=== PATIENT | female | born 1955 | race Caucasian/White ===

== ENCOUNTER → 2017-08-07 | Outpatient (CLI) | payer MEDICARE, MEDICAID ==
--- NOTE | 2017-08-08 08:15 | XCELERA REPORT ---
[address] [address] Lower Extremity Arterial Evaluation Name: MELI HILL Age: 61 yrs Gender: Female : 1955 Patient Status: Outpatient Patient Location: Study Date: 08/07/2017 01:36 PM Procedure: A color flow and duplex scan of the lower extremity arteries was performed bilaterally with velocity and waveform anaylsis. Reason For Study: ULCER Ordering Physician: SANKET ORTIZ Performed By: John Garcia Measurements and Calculations Right Left SALES AND BUSINESS DEVELOPMENT MANAGER PSV 146.7 130.7 cm/sec Prox PFA PSV -82.0 51.3 cm/sec Prox SFA PSV 108.2 103.6 cm/sec Mid SFA PSV -107.0 -154.0 cm/sec Dist SFA PSV -92.1 -121.0 cm/sec Prox Pop A PSV 91.5 94.3 cm/sec Dist ROSI PSV 14.5 89.9 cm/sec Dist INSURANCE ASSISTANT PSV 120.7 146.9 cm/sec Pedro Luis Pedis PSV -108.6 -179.7 cm/sec Right Side Arterial Evaluation Normal velocity and triphasic waveforms noted from the Common Femoral artery to the Posterior Tibial . Biphasic in the Anterior Tibial 20-49 % stenosis at the Anterior Tibial artery. Ankle Brachial index was not done due to patient request. Left Side Arterial Evaluation Normal velocity and triphasic waveforms noted from the Common Femoral artery to the Anterior Tibial. Biphasic in the Posterior tibial. 20-49 % stenosis at the Posterior tibial. artery. Ankle Brachial index was not done due to patient request. Interpretation Summary Mild hemodynamically significant lesions in the bilateral lower extremities, on duplex imaging, at rest. : SANKET ORTIZ > Fredrick Mcgovern
--- NOTE | 2017-08-08 08:19 | XCELERA REPORT ---
[address] [address] Lower Extremity Venous Evaluation Name: MELI HILL Age: 61 yrs Gender: Female : 1955 Patient Status: Outpatient Patient Location: Study Date: 08/07/2017 02:04 PM Procedure: A bilateral duplex scan of the lower extremity veins was performed. The evaluation included responses to compression and other maneuvers with patient in the supine and standing positions to assess venous insufficiency. Reason For Study: ULCER Ordering Physician: SANKET ORTIZ Performed By: John Garcia Right Sided Venous Evaluation Deep venous system evaluatiion shows patent veins with no obstruction or significant reflux identified. Sapheno Femoral junction: no reflux. Femoral vein reflux: no reflux. Greater Saphenous vein, Proximal thigh: reflux: no reflux. Greater Saphenous vein, Distal thigh: reflux: no reflux. Greater Saphenous vein, Proximal below knee: reflux: no reflux. No significant Perforators identified. Left Sided Venous Evaluation Deep venous system evaluatiion shows patent veins with no obstruction or significant reflux identified. Sapheno Femoral junction: no reflux. Femoral vein reflux: no reflux. Greater Saphenous vein, Proximal thigh: reflux: no reflux. Greater Saphenous vein, Distal thigh: reflux: no reflux. Greater Saphenous vein, Proximal below knee: reflux: no reflux. No significant Perforators identified. Interpretation Summary No duplex evidence of DVT or obstruction in the bilateral lower extremities. No significant superficial or deep reflux. : SANKET ORTIZ > Fredrick Mcgovern
== END ==
LOC: SP 12:19
PROVIDERS: ATTEND Nurse Practitioner
DX: L97.222 Non-pressure chronic ulcer of left calf with fat layer exposed (principal)
CPT/HCPCS: 93925; 93970

== ENCOUNTER 2018-03-23 10:53 | Inpatient (IN) | payer MEDICARE, MEDICAID ==
--- NOTE | 2018-03-23 11:20 | ER Document Report ---
ED Medical Screen (RME) - General Chief Complaint: Chest Congestion Stated Complaint: SHORTNESS OF BREATH Time Seen by Provider: 03/23/18 11:17 Mode of Arrival: Medic Information source: Patient Notes: This is a 62-year-old female who presents to the emergency room with low-grade fever, sore throat, coughing, wheezing. Patient states that sore throat started 3 days ago and she started coughing 2 days ago. She was seen in urgent care and sent over from urgent care by EMS. She is so far received 3 nebulizer treatments (she does states she is gotten benefit from these), IV Solu-Medrol. She has a history of lymphedema and psoriasis. Her only medicines his Lasix. She lives with her brother who has not been sick. TRAVEL OUTSIDE OF THE [place] IN LAST 30 DAYS: No - Related Data Allergies/Adverse Reactions: No Known Allergies Allergy (Verified 03/23/18 10:54) Past Medical History - Past Medical History Cardiac Medical History: Reports: Hx Hypertension, Hx Peripheral Vascular Disease Pulmonary Medical History: Reports: Hx Bronchitis, Hx Pneumonia Denies: Hx Tuberculosis Renal/ Medical History: Denies: Hx Peritoneal Dialysis Malignancy Medical History: Denies: Hx Cervical Cancer - polyp removed 2012 Skin Medical History: Reports Hx Cellulitis Infectious Medical History: Denies: Hx MRSA Past Surgical History: Reports: Hx Cholecystectomy, Hx Orthopedic Surgery - back surgery. Denies: Hx Pacemaker - Immunizations Hx Diphtheria, Pertussis, Tetanus Vaccination: No Physical Exam - Vital signs Vitals: Temp Pulse Resp BP Pulse Ox 98.5 F 89 34 H 150/87 H 91 L 03/23/18 11:03/23/18 11:03/23/18 11:03/23/18 11:00 03/23/18 11:00 Course - Vital Signs Vital signs: Temp Pulse Resp BP Pulse Ox 98.5 F 89 34 H 150/87 H 91 L 03/23/18 11:03/23/18 11:03/23/18 11:00 03/23/18 11:00 03/23/18 11:00 Doctor's Discharge - Discharge Referrals: SANKET ORTIZ NP [Primary Care Provider] - Follow up as needed
--- NOTE | 2018-03-23 11:40 | RADIOLOGY REPORT (SQ) ---
EXAM DESCRIPTION: CHEST SINGLE VIEW COMPLETED DATE/TIME: 03/23/2018 11:31 am REASON FOR STUDY: sob COMPARISON: 12/28/2011 EXAM PARAMETERS: NUMBER OF VIEWS: One view. TECHNIQUE: Single frontal radiographic view of the chest acquired. RADIATION DOSE: NA LIMITATIONS: None. FINDINGS: LUNGS AND PLEURA: No opacities, masses or pneumothorax. No pleural effusion. MEDIASTINUM AND HILAR STRUCTURES: No masses. Contour normal. HEART AND VASCULAR STRUCTURES: Heart normal in size. Normal vasculature. BONES: No acute findings. HARDWARE: None in the chest. OTHER: No other significant finding. IMPRESSION: NO ACUTE RADIOGRAPHIC FINDING IN THE CHEST. TECHNICAL DOCUMENTATION: JOB ID: [id number] [employer]- All Rights Reserved Reading location - IP/workstation name: [email or web address]
[2018-03-23 12:22] LABS: HEMATOCRIT 43.8 % (36.0-47.0); HEMOGLOBIN 14.4 g/dL (12.0-15.5); MEAN CORPUSCULAR HEMOGLOBIN 27.4 pg (27.0-33.4); MEAN CORPUSCULAR HGB CONC 32.8 g/dL (32.0-36.0); MEAN CORPUSCULAR VOLUME 83 fl (80-97); PLATELET COUNT 212 10^3/uL (150-450); RED BLOOD COUNT 5.25 10^6/uL (3.72-5.28); RED CELL DISTRIBUTION WIDTH 15.4 % (11.5-14.0); WHITE BLOOD COUNT 8.1 10^3/uL (4.0-10.5)
[2018-03-23 12:32] LABS: A TYPE INFLUENZA AG NEGATIVE (NEGATIVE); ALANINE AMINOTRANSFERASE 38 U/L (9-52); ALBUMIN 4.8 g/dL (3.5-5.0); ALKALINE PHOSPHATASE 109 U/L (38-126); ANION GAP 13 (5-19); ASPARTATE AMINO TRANSFERASE 34 U/L (14-36); B INFLUENZA AG NEGATIVE (NEGATIVE); BILIRUBIN,DIRECT 0.2 mg/dL (0.0-0.4); BILIRUBIN,TOTAL 0.8 mg/dL (0.2-1.3); BLOOD UREA NITROGEN 13 mg/dL (7-20); CALCIUM 9.5 mg/dL (8.4-10.2); CARBON DIOXIDE 24 mmol/L (22-30); CHLORIDE 105 mmol/L (98-107); GLUCOSE 148 mg/dL (75-110); POTASSIUM 3.9 mmol/L (3.6-5.0); SODIUM 142.2 mmol/L (137-145)
[2018-03-23 12:43] LABS: NT PRO BNP 92 pg/mL (5-900)
[2018-03-23 12:47] LABS: TROPONIN I < 0.012 ng/mL
[2018-03-23 12:52] LABS: ABSOLUTE LYMPHOCYTES# (MANUAL) 1.2 10^3/uL (0.5-4.7); ABSOLUTE MONOCYTES # (MANUAL) 0.2 10^3/uL (0.1-1.4); ABSOLUTE NEUTROPHILS# (MANUAL) 6.4 10^3/uL (1.7-8.2); BASOPHILS % (MANUAL) 1 % (0-2); EOSINOPHILS % (MANUAL) 2 % (0-6); HYPOCHROMASIA SLIGHT; LYMPHOCYTES % (MANUAL) 15 % (13-45); MONOCYTES % (MANUAL) 3 % (3-13); PLATELET COMMENT ADEQUATE; POLYCHROMASIA SLIGHT; SEGMENTED NEUTROPHILS % (MAN) 79 % (42-78); TOTAL CELLS COUNTED 100; TOXIC GRANULATION 1+
[2018-03-23] MEDS ORDERED: IPRATROPIUM/ALBUTEROL 0.5-2.5 MG/3 ML AMPUL NEB ONE (13:06)
--- NOTE | 2018-03-23 13:12 | ER Document Report ---
ED Respiratory Problem - General Chief Complaint: Chest Congestion Stated Complaint: SHORTNESS OF BREATH Time Seen by Provider: 03/23/18 11:17 Mode of Arrival: Medic Notes: Patient is complaining of difficulty breathing since Monday. She has been coughing productive of some green phlegm. Has had a fever, as high as 100.1 last night. Patient does not have any history of asthma or emphysema or COPD. Did not get a flu shot this year. Patient went to a local urgent care today where she was given 3 nebulizers of albuterol plus a shot of a steroid and sent here when she continued to have wheezing and low oxygen. Patient heats her house with a kerosene heater. Denies any vomiting or diarrhea. Denies chest pains. TRAVEL OUTSIDE OF THE [place] IN LAST 30 DAYS: No - Related Data Allergies/Adverse Reactions: No Known Allergies Allergy (Verified 03/23/18 10:54) Past Medical History - General Information source: Patient - Social History Smoking Status: Never Smoker Family History: Reviewed & Not Pertinent Patient has suicidal ideation: No Patient has homicidal ideation: No - Past Medical History Cardiac Medical History: Reports: Hx Hypertension, Hx Peripheral Vascular Disease Pulmonary Medical History: Reports: Hx Bronchitis, Hx Pneumonia Skin Medical History: Reports Hx Cellulitis Past Surgical History: Reports: Hx Cholecystectomy, Hx Orthopedic Surgery - back surgery. Denies: Hx Pacemaker - Immunizations Hx Diphtheria, Pertussis, Tetanus Vaccination: No Review of Systems - Review of Systems Notes: REVIEW OF SYSTEMS: CONSTITUTIONAL : Fever last night. EENT: Denies eye, ear, nose or mouth or throat pain or other symptoms. CARDIOVASCULAR: Denies chest pain. Has chronic lymphedema of both lower legs for which she takes Lasix. RESPIRATORY: See HPI. Does not have home oxygen or home nebulizers. GASTROINTESTINAL: Denies abdominal pain or nausea, vomiting, or diarrhea. GENITOURINARY: Denies difficulty or painful urinating, urinary frequency, blood in urine. MUSCULOSKELETAL: Denies back or neck pain. Denies joint pain or swelling. SKIN: Denies rash or skin lesions. NEUROLOGICAL: Denies LOC or altered mental status. Denies headache. Denies sensory loss or motor deficits. ALL OTHER SYSTEMS REVIEWED AND NEGATIVE. Physical Exam - Vital signs Vitals: Temp Pulse Resp BP Pulse Ox 98.5 F 89 34 H 150/87 H 91 L 03/23/18 11:00 03/23/18 11:00 03/23/18 11:00 03/23/18 11:00 03/23/18 11:00 Interpretation: Hypoxic Notes: PHYSICAL EXAMINATION: GENERAL: In no acute distress. Wheezes audible to the naked ear without a stethoscope necessary. HEAD: Atraumatic, normocephalic. EYES: Pupils equal round and reactive to light, extraocular movements intact. ENT: oropharynx clear without exudates. Moist mucous membranes. NECK: Normal range of motion, supple. LUNGS: Scattered rhonchi and a few wheezes throughout both lung van. HEART: Regular rate and rhythm without murmurs. ABDOMEN: Soft, nontender. No guarding or rebound. No masses. BACK: No tenderness throughout entire back. EXTREMITIES: Normal range of motion without pain. Patient has pitting edema both lower legs. Lower extremity is wrapped with bandages. NEUROLOGICAL: Normal speech, Normal sensory, motor, and reflex exams. Awake, alert, and oriented x3. Cranial nerves normal. PSYCH: Normal mood, normal affect. SKIN: Warm, dry, no rashes. Course - Re-evaluation Re-evalutation: 03/23/18 13:47 Patient's O2 sat on room air is in the low 90s, 91% in triage. She does not have home oxygen or home nebulizers. Her residence is heated by a kerosene heater. I do not think she will be able to go home and, if so, it would not be safe to do so. Hospitalist contacted who will admit the patient. - Vital Signs Vital signs: Temp Pulse Resp BP Pulse Ox 98.5 F 89 24 H 150/87 H 95 03/23/18 11:00 03/23/18 11:00 03/23/18 13:00 03/23/18 11:00 03/23/18 13:00 - Laboratory Result Diagrams: 03/23/18 11:44 03/23/18 11:44 Laboratory results interpreted by me: 03/23/18 03/23/18 03/23/18 11:44 11:44 11:44 RDW 15.4 H Seg Neuts % (Manual) 79 H Carboxyhemoglobin Glucose 148 H Lactic Acid 2.2 H 03/23/18 12:22 RDW Seg Neuts % (Manual) Carboxyhemoglobin 1.8 H Glucose Lactic Acid - Diagnostic Test Radiology results interpreted by wy: 03/23/18 13:14 Chest x-ray is normal. - EKG Interpretation by Wi EKG shows normal: Sinus rhythm Rate: Normal Rhythm: NSR Additional EKG results interpreted by wy: 03/23/18 13:14 EKG is normal. Discharge - Discharge Clinical Impression: Upper respiratory infection, Hypoxia Condition: Stable Disposition: ADMITTED OBSERVATION Admitting Provider: Hospitalist Unit Admitted: Telemetry Referrals: SANKET ORTIZ STUDENT OUTREACH COORDINATOR [Primary Care Provider] - Follow up as needed
[2018-03-23] MEDS ORDERED: OXYCODONE-ACETAMINOPHEN 5-325 MG TABLET PO PRN (13:59)
[2018-03-23] MEDS ORDERED: LEVALBUTEROL HCL NEB 1.25 MG/3 ML AMPUL NEB PRN (14:09)
[2018-03-23] MEDS ORDERED: NORMAL SALINE 1000 ML 1,000 ML IV PRN (14:09)
[2018-03-23] MEDS ORDERED: ONDANSETRON HCL INJ/PF 4 MG/2 ML SDV IV PRN (14:09)
[2018-03-23] MEDS ORDERED: ACETAMINOPHEN 325 MG TABLET PO PRN (14:22)
--- NOTE | 2018-03-23 14:38 | PDOC H&P ---
History of Present Illness Admission Date/PCP: SANKET ORTIZ NP Patient complains of: Shortness of breath History of Present Illness: MELI HILL is a 62 year old female obesity with gastric bypass, hypertension, eczema, psoriasis chronic edema of the lower extremities came to the emergency room with complaints of shortness of breath for the last 3 days. Symptoms started with sore throat and cough initially followed by coughing up greenish colored sputum. She is also complaining of headaches across the forehead as in association with runny nose. She is also given the history of low-grade fever 100.1 at home. Denies any nausea vomiting diarrhea constipation. Denies any new rashes. Denies any problem with urination. She is said she is using [employer] heater for the last 4 years never had a problem with fumes. But her carboxyhemoglobin is 1.8 on admission. The fire department was called after she left the home they found CO2 levels are high in the house. On examination patient alert and awake communicating very well in mild to moderate distress. Past Medical History Cardiac Medical History: Reports: Hypertension, Peripheral Vascular Disease Pulmonary Medical History: Reports: Bronchitis, Pneumonia Denies: Tuberculosis Malignancy Medical History: Denies: Cervical Cancer - polyp removed 2011 Infectious Medical History: Denies: Methicillin-Resistant Staph Aureus Past Surgical History Past Surgical History: Reports: Cholecystectomy, Gastric Bypass Surgery, Ortho pedic Surgery - back surgery, Other - Polyp removed from the cervix. Gastric bypass Denies: Pacemaker Social History Smoking Status: Never Smoker Hx Recreational Drug Use: No Hx Prescription Drug Abuse: No - Advance Directive Resuscitation Status: Full Code Family History Family History: Reviewed & Not Pertinent Parental Family History Reviewed: Yes Children Family History Reviewed: Yes Sibling(s) Family History Reviewed.: Yes Medication/Allergy Home Medications: Amoxicillin/Potassium Clav [Augmentin 875-125 Tablet] 875 mg PO BID 06/29/12 Furosemide [Lasix 40 mg Tablet] 40 mg PO BID #0 tablet 06/29/12 Lisinopril [Prinivil 10 mg Tablet] 20 mg PO DAILY #0 tablet 06/29/12 Oxycodone HCl/Acetaminophen [Percocet 5-325 mg Tablet] 1 tab PO Q6HP PRN #0 tablet 06/29/12 Potassium Chloride [Klor-Con] 30 meq PO DAILY 06/29/12 Allergies/Adverse Reactions: No Known Allergies Allergy (Verified 03/23/18 10:54) Review of Systems Constitutional: PRESENT: chills, fever(s), weakness Eyes: ABSENT: visual disturbances Ears: ABSENT: hearing changes Nose, Mouth, and Throat: PRESENT: sore throat Cardiovascular: ABSENT: chest pain Respiratory: PRESENT: cough, dyspnea, sputum Gastrointestinal: ABSENT: abdominal pain, nausea, vomiting Neurological: ABSENT: abnormal gait, abnormal speech, confusion, dizziness, focal weakness, syncope Psychiatric: ABSENT: anxiety, depression, homidical ideation, suicidal ideation Physical Exam Vital Signs: Temp Pulse Resp BP Pulse Ox 98.5 F 89 24 H 150/87 H 95 03/23/18 11:00 03/23/18 11:00 03/23/18 13:00 03/23/18 11:00 03/23/18 13:00 Intake & Output 03/22/18 03/23/18 03/24/18 06:59 06:59 06:59 Weight 128.2 kg General appearance: PRESENT: mild distress Head exam: PRESENT: atraumatic Eye exam: PRESENT: PERRLA Mouth exam: PRESENT: moist Neck exam: ABSENT: carotid bruit, JVD, lymphadenopathy, thyromegaly Respiratory exam: PRESENT: crackles, decreased breath sounds, wheezes Cardiovascular exam: PRESENT: tachycardia GI/Abdominal exam: PRESENT: normal bowel sounds, soft. ABSENT: distended, guard ing, mass, organolmegaly, rebound, tenderness Extremities exam: PRESENT: full ROM, pedal edema, +1 edema. ABSENT: calf tenderness, clubbing Neurological exam: PRESENT: alert, awake, oriented to person, oriented to place, oriented to time, oriented to situation, CN II-XII grossly intact. ABSENT: motor sensory deficit Psychiatric exam: PRESENT: appropriate affect, normal mood. ABSENT: homicidal ideation, suicidal ideation Results Laboratory Results: 03/23/18 11:44 03/23/18 11:44 03/23/18 03/23/18 03/23/18 11:44 11:44 11:44 WBC 8.1 RBC 5.25 Hgb 14.4 Hct 43.8 MCV 83 MCH 27.4 MCHC 32.8 RDW 15.4 H Plt Count 212 Seg Neutrophils % Not Reportable Lymphocytes % Not Reportable Monocytes % Not Reportable Eosinophils % Not Reportable Basophils % Not Reportable Absolute Neutrophils Not Reportable Absolute Lymphocytes Not Reportable Absolute Monocytes Not Reportable Absolute Eosinophils Not Reportable Absolute Basophils Not Reportable Carboxyhemoglobin Sodium 142.2 Potassium 3.9 Chloride 105 Carbon Dioxide 24 Anion Gap 13 BUN 13 Creatinine 0.67 Est GFR ( Amer) > 60 Est GFR (Non-Af Amer) > 60 Glucose 148 H Lactic Acid 2.2 H Calcium 9.5 Total Bilirubin 0.8 AST 34 ALT 38 Alkaline Phosphatase 109 Total Protein 8.0 Albumin 4.8 03/23/18 12:22 WBC RBC Hgb Hct MCV MCH MCHC RDW Plt Count Seg Neutrophils % Lymphocytes % Monocytes % Eosinophils % Basophils % Absolute Neutrophils Absolute Lymphocytes Absolute Monocytes Absolute Eosinophils Absolute Basophils Carboxyhemoglobin 1.8 H Sodium Potassium Chloride Carbon Dioxide Anion Gap BUN Creatinine Est GFR ( Amer) Est GFR (Non-Af Amer) Glucose Lactic Acid Calcium Total Bilirubin AST ALT Alkaline Phosphatase Total Protein Albumin 03/23/18 11:44 Troponin I < 0.012 NT-Pro-B Natriuret Pep 92 Impressions: Chest X-Ray 03/23/18 11:18 IMPRESSION: NO ACUTE RADIOGRAPHIC FINDING IN THE CHEST. Assessment & Plan - Diagnosis (1) Shortness of breath Plan: 03/23/2018 patient came in with shortness of breath associated with wheezing for the last 3 days there is questionable exposure to kerosene heater. Plan is to put her into telemetry. As an inpatient. Oxygen 2 L nasal cannula, IV Solu- Medrol 40 mg every 12 hours. Blood cultures sputum cultures requested. Patient was started on levofloxacin 500 mg IV daily. She was also placed on Xopenex neb ulizations every 4 as needed for wheezing. Chest CT was requested. Flutter valve also requested. No ABG was done in the ER, ABG was requested. (2) Morbid obesity Is this a current diagnosis for this admission?: Yes Plan: 03/23/2018 patient has BMI is more than 40. Diet exercise weight loss was advised. Lifestyle modifications recommended dietary consult was requested. (3) Hypertension Is this a current diagnosis for this admission?: Yes Plan: 03/23/2018-patient blood pressures are elevated during the ER visit. Blood pressure is 150/87. I started her back on her home medications. Patient is on Lasix 40 mg twice a day and lisinopril 20 mg daily. (4) Elevated CO2 level Is this a current diagnosis for this admission?: Yes Plan: 03/23 2018-history of exposure to kerosene heater in the house and the fire department found elevated CO2 levels in the house carboxyhemoglobin globin lev els is 1.8 here. - Time Time Spent: 50 to 70 Minutes Medications reviewed and adjusted accordingly: Yes Anticipated discharge: Home
--- NOTE | 2018-03-23 15:21 | RADIOLOGY REPORT (SQ) ---
EXAM DESCRIPTION: CT CHEST WITHOUT COMPLETED DATE/TIME: 03/23/2018 3:02 pm REASON FOR STUDY: shortness of breath COMPARISON: Chest x-ray 03/23/2018 TECHNIQUE: CT scan performed of the chest without intravenous contrast. Images reviewed with lung, soft tissue and bone windows. Reconstructed coronal and sagittal MPR images reviewed. All images st ored on PACS. All CT scanners at this facility use dose modulation, iterative reconstruction, and/or weight based d osing when appropriate to reduce radiation dose to as low as reasonably achievable (ALARA). [facility]: Dose Right [facility]: CareDose [facility]: Dose Right [facility]: Teradose 4D [facility]: [employer] RADIATION DOSE: CT Rad equipment meets quality standard of care and radiation dose reduction techniq ues were employed. CTDIvol: 19.4 mGy. DLP: 767 mGy-cm. mGy. LIMITATIONS: No technical limitations. FINDINGS: LUNGS AND PLEURA: There are some very mild ground-glass infiltrates in the upper lobes. T here is limited subsegmental atelectasis in the lower lobes. HILAR AND MEDIASTINAL STRUCTURES: No identified masses or abnormal nodes. No obvious aneurysm. HEART AND VASCULAR STRUCTURES: No aneurysm. No pericardial effusion. UPPER ABDOMEN: No significant findings. Limited exam. THYROID AND OTHER SOFT TISSUES: No masses. No adenopathy. BONES: No significant finding. HARDWARE: None in the chest. OTHER: No other significant findings. IMPRESSION: There are mild ground-glass infiltrates in the upper lobes. This may suggest mild chron ic interstitial changes or mild interstitial edema. TECHNICAL DOCUMENTATION: JOB ID: [id number] Quality ID # [id number]: Final reports with documentation of one or more dose reduction techniques (e.g., Au tomated exposure control, adjustment of the mA and/or kV according to patient size, use of iterative reconstruction technique) 2010 [employer]- All Rights Reserved Reading location - IP/workstation name: [email or web address]
[2018-03-23] MEDS: ENOXAPARIN SODIUM INJ 40 MG/0.4 ML DISP.SYRIN SUBCUT SCH (16:27)
[2018-03-23] MEDS: DOCUSATE SODIUM 100 MG CAPSULE PO SCH (18:11)
[2018-03-23] MEDS: METHYLPREDNISOLONE INJ 40 MG/1 ML SDV IV SCH (18:17)
--- NOTE | 2018-03-23 20:56 | EKG REPORT ---
SEVERITY:- NORMAL ECG - SINUS RHYTHM NONSPECIFIC ST-T CHANGES : Confirmed by: Caitie Puente 23-Mar-2018 20:54:46
--- NOTE | 2018-03-23 20:56 | EKG REPORT ---
SEVERITY:- OTHERWISE NORMAL ECG - SINUS RHYTHM LEFT AXIS DEVIATION NONSPECIFIC ST-T CHANGES : Confirmed by: Caitie Puente 23-Mar-2018 20:55:12
[2018-03-23] MEDS: FAMOTIDINE 20 MG TABLET PO SCH (21:02)
[2018-03-24 06:08] LABS: ABSOLUTE LYMPHOCYTES (AUTO) 0.5 10^3/uL (0.5-4.7); ABSOLUTE MONOCYTES (AUTO) 0.5 10^3/uL (0.1-1.4); ABSOLUTE NEUT (AUTO) 6.6 10^3/uL (1.7-8.2); BASOPHILS % (AUTO) 0.1 % (0-2); EOSINOPHILS % (AUTO) 0.1 % (0-6); HEMATOCRIT 38.2 % (36.0-47.0); HEMOGLOBIN 12.7 g/dL (12.0-15.5); LYMPHOCYTES % (AUTO) 6.5 % (13-45); MEAN CORPUSCULAR HEMOGLOBIN 27.7 pg (27.0-33.4); MEAN CORPUSCULAR HGB CONC 33.2 g/dL (32.0-36.0); MEAN CORPUSCULAR VOLUME 83 fl (80-97); MONOCYTES % (AUTO) 6.2 % (3-13); PLATELET COUNT 192 10^3/uL (150-450); RED BLOOD COUNT 4.58 10^6/uL (3.72-5.28); RED CELL DISTRIBUTION WIDTH 15.3 % (11.5-14.0); SEGMENTED NEUTROPHILS % (AUTO) 87.1 % (42-78); TOTAL CELLS COUNTED % (AUTO) 100 %; WHITE BLOOD COUNT 7.6 10^3/uL (4.0-10.5)
[2018-03-24 06:26] LABS: ALANINE AMINOTRANSFERASE 36 U/L (9-52); ALBUMIN 4.2 g/dL (3.5-5.0); ALKALINE PHOSPHATASE 94 U/L (38-126); ANION GAP 9 (5-19); ASPARTATE AMINO TRANSFERASE 27 U/L (14-36); BILIRUBIN,DIRECT 0.2 mg/dL (0.0-0.4); BILIRUBIN,TOTAL 0.5 mg/dL (0.2-1.3); BLOOD UREA NITROGEN 17 mg/dL (7-20); CALCIUM 9.2 mg/dL (8.4-10.2); CARBON DIOXIDE 25 mmol/L (22-30); CHLORIDE 107 mmol/L (98-107); CHOLESTEROL 150.63 mg/dL (0-200); GLUCOSE 130 mg/dL (75-110); POTASSIUM 4.7 mmol/L (3.6-5.0); SODIUM 140.5 mmol/L (137-145); TOTAL PROTEIN 6.9 g/dL (6.3-8.2); TRIGLYCERIDES 54 mg/dL (<150)
[2018-03-24 06:37] LABS: DIRECT LDL 69 mg/dL (<100)
[2018-03-24] MEDS ORDERED: LISINOPRIL 10 MG TABLET PO SCH (10:00)
[2018-03-24] MEDS ORDERED: POTASSIUM CHLORIDE 30 MEQ PO SCH (10:00)
[2018-03-24] MEDS ORDERED: POTASSIUM CHLORIDE 10 MEQ CAPSULE.ER PO SCH (10:00)
[2018-03-24] MEDS: LEVOFLOXACIN 500 MG/D5W RTU 500 MG/100 ML RTUPB IV SCH (10:46)
[2018-03-24] MEDS: FAMOTIDINE 20 MG TABLET PO SCH ×2 (10:46→21:13)
[2018-03-24] MEDS: METHYLPREDNISOLONE INJ 40 MG/1 ML SDV IV SCH ×2 (10:47→17:14)
[2018-03-24] MEDS: ENOXAPARIN SODIUM INJ 40 MG/0.4 ML DISP.SYRIN SUBCUT SCH (10:47)
[2018-03-24] MEDS: DOCUSATE SODIUM 100 MG CAPSULE PO SCH ×2 (10:47→17:11)
[2018-03-24] MEDS ORDERED: METOLAZONE 5 MG TABLET PO ONE (14:00)
[2018-03-24] MEDS: FUROSEMIDE 40 MG TABLET PO SCH ×2 (15:51→15:52)
[2018-03-25 05:17] LABS: ABSOLUTE LYMPHOCYTES (AUTO) 0.7 10^3/uL (0.5-4.7); ABSOLUTE MONOCYTES (AUTO) 0.5 10^3/uL (0.1-1.4); ABSOLUTE NEUT (AUTO) 7.4 10^3/uL (1.7-8.2); BASOPHILS % (AUTO) 0.2 % (0-2); HEMATOCRIT 39.4 % (36.0-47.0); HEMOGLOBIN 13.1 g/dL (12.0-15.5); LYMPHOCYTES % (AUTO) 8.3 % (13-45); MEAN CORPUSCULAR HEMOGLOBIN 27.1 pg (27.0-33.4); MEAN CORPUSCULAR HGB CONC 33.1 g/dL (32.0-36.0); MEAN CORPUSCULAR VOLUME 82 fl (80-97); MONOCYTES % (AUTO) 6.2 % (3-13); PLATELET COUNT 217 10^3/uL (150-450); RED BLOOD COUNT 4.82 10^6/uL (3.72-5.28); SEGMENTED NEUTROPHILS % (AUTO) 85.3 % (42-78); TOTAL CELLS COUNTED % (AUTO) 100 %; WHITE BLOOD COUNT 8.6 10^3/uL (4.0-10.5)
[2018-03-25 05:27] LABS: ALBUMIN 4.3 g/dL (3.5-5.0); ANION GAP 9 (5-19); BLOOD UREA NITROGEN 21 mg/dL (7-20); CALCIUM 9.6 mg/dL (8.4-10.2); CARBON DIOXIDE 26 mmol/L (22-30); CHLORIDE 103 mmol/L (98-107); GLUCOSE 114 mg/dL (75-110); PHOSPHORUS 4.7 mg/dL (2.5-4.5); POTASSIUM 4.5 mmol/L (3.6-5.0); SODIUM 138.2 mmol/L (137-145)
[2018-03-25] MEDS: DOCUSATE SODIUM 100 MG CAPSULE PO SCH ×2 (09:49→18:08)
[2018-03-25] MEDS: LEVOFLOXACIN 500 MG/D5W RTU 500 MG/100 ML RTUPB IV SCH (09:57)
[2018-03-25] MEDS: ENOXAPARIN SODIUM INJ 40 MG/0.4 ML DISP.SYRIN SUBCUT SCH (09:57)
[2018-03-25] MEDS: METHYLPREDNISOLONE INJ 40 MG/1 ML SDV IV SCH ×2 (09:57→18:46)
[2018-03-25] MEDS: FAMOTIDINE 20 MG TABLET PO SCH ×2 (09:58→21:11)
--- NOTE | 2018-03-26 05:37 | PROGRESS NOTE E ---
Progress Note NAME: MELI HILL : 1955 AGE: 62Y DATE: 03/25/2018 ROOM: 532 SUBJECTIVE: The patient is a 62-year-old female who had a past medical history of hypertension, eczema, psoriasis, peripheral vascular disease, hypertension. The patient admitted with shortness of breath, COPD exacerbation. She was started on Solu-Medrol, IV Levaquin. She is a little bit better today, but she is still wheezing. OBJECTIVE: GENERAL: The patient lying in bed comfortable, not in distress. VITAL SIGNS: Heart rate is 56, temperature 98, blood pressure 136/86, saturation 99% on 2 L. HEENT: Head: Normocephalic, atraumatic. Pupils round, reactive to light and accommodation bilaterally. Extraocular movements intact. Ears: Tympanic membranes intact bilaterally. No discharge from the ears. No discharge from the nose. NECK: Supple. No increased JVD. No thyromegaly. No lymphadenopathy. CARDIOVASCULAR: Normal S1, S2. Regular rate and rhythm. No murmur. No gallop. RESPIRATORY: The patient has bilateral crackles and wheezing. ABDOMEN: Soft, nontender. MUSCULOSKELETAL: Edema +1. LABORATORY DATA: Sodium is 138, potassium 4.6, creatinine 0.6. White blood count 8.6, hemoglobin 13.1. ASSESSMENT: 1. ACUTE HYPOXIC RESPIRATORY FAILURE SECONDARY TO COPD EXACERBATION. 2. MORBID OBESITY. 3. VOLUME OVERLOAD. 4. HYPERTENSION. PLAN: 1. Continue Lasix 80 mg IV twice a day. 2. Continue Solu-Medrol. 3. I will give 1 dose of Zaroxolyn 5 mg, 1 dose. 4. We will change Solu-Medrol to prednisone. MEDICAL NECESSITY: The patient on IV Lasix and IV Solu-Medrol and IV antibiotics. DISPOSITION: We will send her home in 1 or 2 days. DICTATING PHYSICIAN: CHRISTY LOOMIS M.D. [id number] [id number] ID: [id number] JOB#: [id number] ACCT: [id number] cc: >
[2018-03-26] MEDS: DOCUSATE SODIUM 100 MG CAPSULE PO SCH ×3 (10:37→17:57)
[2018-03-26] MEDS: FAMOTIDINE 20 MG TABLET PO SCH ×2 (10:37→21:46)
[2018-03-26] MEDS: LEVOFLOXACIN 500 MG TABLET PO SCH (10:37)
[2018-03-26] MEDS: ENOXAPARIN SODIUM INJ 40 MG/0.4 ML DISP.SYRIN SUBCUT SCH (10:38)
[2018-03-26] MEDS: METHYLPREDNISOLONE INJ 40 MG/1 ML SDV IV SCH ×2 (10:38→18:05)
--- NOTE | 2018-03-26 12:46 | PDOC CONSULTATION ---
Consultation Consult Date: 03/26/18 Attending physician:: JACE VARGAS Consult reason:: dyspnea History of Present Illness Admission Date/PCP: 03/23/18 15:05 SANKET ORTIZ NP History of Present Illness: MELI HILL is a 62 year old female, presented to the emergency room after 3 days of cough productive of yellow greenish phlegm fever and increasing shortness of breath. She denies shortness of breath at rest or dyspnea on exertion in her normal state of health PPD in the distant past the date is unknown her PPD was normal. She has no history of chronic lung disease as a child or adolescent. She makes exposure to passive smoke as a child as well as an adult she herself was never smoked. 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 She has no pets and denies any recent travel. She denies angina-like chest pain sleeps on 3-4 pillows admits to occasional PND a patient with occasional nocturnal cough and chronic edema. She is not sure if she snores but admits to restless sleep nocturia 2-3 times per night unrestful sleep and excessive daytime, somnolent Past Medical History Cardiac Medical History: Reports: Hypertension, Peripheral Vascular Disease Pulmonary Medical History: Reports: Bronchitis, Pneumonia Denies: Tuberculosis Malignancy Medical History: Denies: Cervical Cancer - polyp removed 2011 GI Medical History: Reports: Gastroesophageal Reflux Disease Denies: Crohn's Disease, Ulcerative Colitis Musculoskeltal Medical History: Reports: Arthritis Skin Medical History: Reports: Psoriasis Traumatic Medical History: Denies: Traumatic Brain Injury Hematology: Denies: Hemophilia, Sickle Cell Disease Infectious Medical History: Denies: HIV, Methicillin-Resistant Staph Aureus Past Surgical History Past Surgical History: Reports: Cholecystectomy, Gastric Bypass Surgery, Orthopedic Surgery - back surgery, Other - Polyp removed from the cervix. Gastric bypass Denies: Pacemaker Social History Information Source: Patient, FOR[facility]LY [facility], 1928–1983 Records Smoking Status: Never Smoker Passive smoke exposure as: Both Frequency of Alcohol Use: None Hx Recreational Drug Use: No Hx Prescription Drug Abuse: No Do you have pets?: No Have you had any respiratory illnesses as a child?: No Have you been exposed to any sick contacts recently?: No Have you had any recent respiratory illnesses?: No Have you travelled outside of [place] in the past 12 months?: No - Advance Directive Resuscitation Status: Full Code Family History Family History: CAD, Hypertension, Malignancy Parental Family History Reviewed: Yes Children Family History Reviewed: Yes Sibling(s) Family History Reviewed.: Yes Medication/Allergy Home Medications: Betamethasone Dipropionate [Betamethasone Dipropionate Ointment] 1 applic TP BIDP PRN 03/23/18 Cholecalciferol (Vitamin D3) [Vitamin D3 5000 unit Capsule] 5,000 unit PO DAILY 03/23/18 Cyanocobalamin (Vitamin B-12) [Vitamin B-12] 1,000 mcg PO DAILY 03/23/18 Furosemide [Lasix 40 mg Tablet] 40 mg PO QAM 03/23/18 Allergies/Adverse Reactions: No Known Allergies Allergy (Verified 03/23/18 10:54) Review of Systems Constitutional: PRESENT: fatigue, weakness. ABSENT: anorexia, chills, night sweats Eyes: ABSENT: visual disturbances Ears: ABSENT: hearing changes Nose, Mouth, and Throat: ABSENT: mouth pain, sore throat Cardiovascular: PRESENT: dyspnea on exertion, orthropnea. ABSENT: edema, palpitations Respiratory: PRESENT: cough, dyspnea, sputum. ABSENT: hemoptysis Gastrointestinal: ABSENT: bloating, coffee ground emesis, heartburn, hematemesis, hematochezia, melena Genitourinary: ABSENT: dysuria, hematuria Neurological: ABSENT: abnormal gait, abnormal movements, abnormal speech, confusion, frequent falls, lack of coordination, memory loss, numbness, paresthesias Psychiatric: ABSENT: hallucinations, homidical ideation, suicidal ideation Endocrine: ABSENT: cold intolerance, heat intolerance Hematologic/Lymphatic: ABSENT: easy bruising, lymphadenopathy Physical Exam Vital Signs: Temp Pulse Resp BP Pulse Ox 97.6 F 66 17 140/64 H 91 L 03/26/18 11:20 03/26/18 11:20 03/26/18 11:20 03/26/18 11:20 03/26/18 11:20 Intake & Output 03/25/18 03/26/18 03/27/18 06:59 06:59 06:59 Intake Total 2069 1929 Balance 2069 1929 Weight 129.4 kg General appearance: PRESENT: no acute distress, cooperative, disheveled, morbidly obese Head exam: PRESENT: atraumatic, normocephalic Eye exam: PRESENT: conjunctiva pale, EOMI. ABSENT: nystagmus, scleral icterus Mouth exam: PRESENT: dry mucosa, neck supple, tongue midline Neck exam: ABSENT: carotid bruit, JVD, lymphadenopathy, thyromegaly, tracheal deviation, tracheostomy Cardiovascular exam: PRESENT: RRR, +S1, +S2 Pulses: PRESENT: normal radial pulses GI/Abdominal exam: PRESENT: soft. ABSENT: tenderness Extremities exam: ABSENT: calf tenderness, clubbing, joint swelling Musculoskeletal exam: ABSENT: deformity, dislocation Neurological exam: PRESENT: alert, awake Psychiatric exam: PRESENT: appropriate affect Skin exam: PRESENT: dry, warm Results Laboratory Results: 03/25/18 04:31 03/25/18 04:31 03/23/18 11:44 Troponin I < 0.012 NT-Pro-B Natriuret Pep 92 Impressions: Chest CT 03/23/18 00:00 IMPRESSION: There are mild ground-glass infiltrates in the upper lobes. This may suggest mild chronic interstitial changes or mild interstitial edema. Chest X-Ray 03/23/18 11:18 IMPRESSION: NO ACUTE RADIOGRAPHIC FINDING IN THE CHEST. Assessment & Plan - Diagnosis (1) Hypertension Qualifiers: Hypertension type: essential hypertension Qualified Code(s): I10 - Essential (primary) hypertension Is this a current diagnosis for this admission?: Yes Plan: stable (2) Morbid obesity Is this a current diagnosis for this admission?: Yes Plan: s/p gastric surgery (3) Upper respiratory infection Is this a current diagnosis for this admission?: Yes Plan: continue current abx (4) Carboxyhemoglobinemia Qualifiers: Encounter type: initial encounter Is this a current diagnosis for this admission?: Yes Plan: check home heaters; needs to wear oxygen at all times (5) Shortness of breath Is this a current diagnosis for this admission?: Yes Plan: states it is s little better now;
--- NOTE | 2018-03-26 12:58 | PROGRESS NOTE E ---
Progress Note NAME: MELI HILL : 1955 AGE: 62Y DATE: 03/24/2018 ROOM: 532 SUBJECTIVE: The patient is a 62-year-old female who has a history of , hypertension, eczema, edema. The patient came to the emergency room with a cough. She was found to have pneumonia. Treated with IV antibiotics as well as also she had a . She was found to have COPD also and she is on Levaquin, Solu Medrol, and 2 liters of oxygen. OBJECTIVE: GENERAL: Patient is lying in bed, comfortable, not in distress. VITAL SIGNS: Blood pressure is 129/63, temperature 97.5, saturation 99% on 2 liters. HEENT: Normocephalic, atraumatic. Pupils equal, round, reactive to light and accommodation bilaterally. Extraocular movements intact. Ears: Tympanic membranes intact bilaterally. No discharge from the ears. No discharge from the nose. NECK: Supple. No increased JVD. No thyromegaly, no lymphadenopathy. CARDIOVASCULAR: Normal S1, S2. Regular rate and rhythm. RESPIRATORY: Bilateral wheezing. ABDOMEN: Soft, nontender. MUSCULOSKELETAL: No edema. NEUROLOGIC: Awake, alert. LABORATORY DATA: Sodium 140, potassium 4.7, creatinine 0.5. White blood count 7.6, hemoglobin 12. ASSESSMENT: 1. SHORT OF BREATH PROBABLY SECONDARY TO COPD EXACERBATION. 2. ACUTE HYPOXIC RESPIRATORY FAILURE SECONDARY TO COPD EXACERBATION. Continue Solu Medrol, oxygen, Levaquin. CT scan of the chest showed some ground glass and some the upper lobe. 3. MORBID OBESITY. PLAN: Will continue IV Solu Medrol, IV Levaquin and Lasix 40 mg twice a day. I will add Zaroxolyn 5 mg one dose now. MEDICAL NECESSITY: The patient is still hypoxic and still has shortness of breath. Will monitor very closely. TIME SPENT: Thirty-five minutes. DICTATING PHYSICIAN: CHRISTY LOOMIS M.D. [id number] PHY#: [id number] ID: [id number] JOB#: [id number] ACCT: [id number] cc: >
[2018-03-26] MEDS: FUROSEMIDE 40 MG TABLET PO SCH (15:02)
[2018-03-26] MEDS: CYANOCOBALAMIN (VITAMIN B-12) 1,000 MCG TABLET PO SCH (15:03)
--- NOTE | 2018-03-26 15:55 | PDOC PROGRESS REPORT ---
Subjective Progress Note for:: 03/26/18 Subjective:: This is a 62 yr old female with a PMH of morbid obesitry with prior gastric bypass, hypertension, eczema, psoriasis and chronic edema of the lower extremities who presented with productive, increasing SOB and fever. She does use a kerosene heater at home. She was noted to have significant wheezing on presentation. She was admitted for a likely COPD exacerbation. She also had slightly elevated carboxyhemoglobin level on admission. She denies prior diagnosis of COPD. She does not smoke but says she grew up with both of her parents smoking. No acute event overnight. She says her breathing continues to improve but still not at baseline. She does report of chronic bipedal swelling and occasional orthopnea. Reason For Visit: SHORTNESS OF BREATH Physical Exam Vital Signs: Temp Pulse Resp BP Pulse Ox 97.6 F 66 17 140/64 H 91 L 03/26/18 11:20 03/26/18 11:20 03/26/18 11:20 03/26/18 11:20 03/26/18 11:20 Intake & Output 03/25/18 03/26/18 03/27/18 06:59 06:59 06:59 Intake Total 2069 1929 Balance 2069 1929 Weight 285 lb 4.45 oz General appearance: PRESENT: no acute distress, morbidly obese Head exam: PRESENT: atraumatic, normocephalic Eye exam: PRESENT: conjunctiva pink, EOMI, PERRLA. ABSENT: scleral icterus Ear exam: PRESENT: normal external ear exam Mouth exam: PRESENT: moist, tongue midline Neck exam: ABSENT: carotid bruit, JVD, lymphadenopathy, thyromegaly Respiratory exam: PRESENT: rhonchi, wheezes. ABSENT: rales Cardiovascular exam: PRESENT: RRR. ABSENT: diastolic murmur, rubs, systolic murmur Pulses: PRESENT: normal dorsalis pedis pul GI/Abdominal exam: PRESENT: normal bowel sounds, soft. ABSENT: distended, guarding, mass, organolmegaly, rebound, tenderness Rectal exam: PRESENT: deferred Extremities exam: PRESENT: +2 edema Neurological exam: PRESENT: alert, awake, oriented to person, oriented to place, oriented to time, oriented to situation, CN II-XII grossly intact. ABSENT: motor sensory deficit Results Laboratory Results: 03/25/18 04:31 03/25/18 04:31 03/23/18 11:44 Troponin I < 0.012 NT-Pro-B Natriuret Pep 92 Impressions: Chest CT 03/23/18 00:00 IMPRESSION: There are mild ground-glass infiltrates in the upper lobes. This may suggest mild chronic interstitial changes or mild interstitial edema. Chest X-Ray 03/23/18 11:18 IMPRESSION: NO ACUTE RADIOGRAPHIC FINDING IN THE CHEST. Assessment & Plan - Diagnosis (1) Acute respiratory failure with hypoxia Is this a current diagnosis for this admission?: Yes Plan: Possible COPD exacerbation. Saturating now on 3L via NC. (2) COPD exacerbation Is this a current diagnosis for this admission?: Yes Plan: Possible COPD exacerbation. No previous diagnosis of COPD. Appreciate pulm recommendations, ordered bedside spirometry. Continue IV steroids for now and breathing treatments. (3) Fluid overload Is this a current diagnosis for this admission?: Yes Plan: She was initially on IV Lasix and was switched to her home PO Lasix 40 mg daily. Echo also ordered as she does also present with increasing pedal edema, exertional dyspnea and orthopnea. - Time Time Spent with patient: 25-34 minutes
--- NOTE | 2018-03-26 20:43 | XCELERA REPORT ---
[address] [address] Transthoracic Echocardiogram Report Name: MELI HILL Age: 62 yrs Gender: Female : 1955 Patient Status: Inpatient Patient Location: [address] [place] [address] Study Date: 03/26/2018 01:49 PM Height: 66 in Weight: 285 lb BSA: 2.3 m2 Procedure: A two-dimensional transthoracic echocardiogram with color flow and Doppler was performed. Study Quality: Fair. Reason For Study: fluid overload,inc edema,SOB,normal echo in 2011 History: SOB / EDEMA. Ordering Physician: AIMEE HOBBS Performed By: Lluvia Ortiz Interpretation Summary The left ventricle is normal in size. There is normal left ventricular wall thickness. LV EF is > THAN 65% Left ventricular systolic function is normal. Doppler measurements suggest normal left ventricular diastolic function The left ventricular wall motion is normal. There is no thrombus. There is no ventricular septal defect visualized. The right ventricle is grossly normal size. The right ventricle is not well visualized secondary to technical limitations The right atrium is normal. The left atrial size is normal. The interatrial septum is intact with no evidence for an atrial septal defect. There is no evidence of mitral valve prolapse. There is no vegetation seen on the mitral valve. There is no mitral valve stenosis. There is no mitral regurgitation noted. There is no aortic valvular vegetation. There is mild aortic stenosis There is a peak gradient of 18 mm of Hg. There is a trace amount of aortic regurgitation There is no tricuspid stenosis. No tricuspid regurgitation. Unable to calculate RVSP due lack of TR jet. There is no pulmonic valvular stenosis. There is no pulmonic valvular regurgitation. The aortic root is normal size. There is no pericardial effusion. MMode/2D Measurements & Calculations RVDd: 3.7 cm LVIDd: 4.5 cm FS: 38.3 % Ao root diam: 2.7 cm IVSd: 1.1 cm LVIDs: 2.8 cm EDV(Teich): 91.4 ml Ao root area: 5.8 cm2 LVPWd: 0.98 cm ESV(Teich): 28.6 ml LA dimension: 3.5 cm EF(Teich): 68.7 % Doppler Measurements & Calculations MV E max tiesha: MV P1/2t max tiesha: Ao V2 max: LV V1 max P.1 cm/sec 97.0 cm/sec 212.3 cm/sec 12.4 mmHg MV A max tiesha: MV P1/2t: 63.9 msec Ao max PG: LV V1 max: 91.4 cm/sec MVA(P1/2t): 3.4 cm2 18.0 mmHg 176.0 cm/sec MV E/A: 1.1 MV dec slope: 444.3 cm/sec2 MV dec time: 0.24 sec PA V2 max: MV P1/2t-pr_phl: 103.2 cm/sec 63.9 msec PA max P.3 mmHg Left Ventricle The left ventricle is normal in size. There is normal left ventricular wall thickness. LV EF is > THAN 65%. Left ventricular systolic function is normal. Doppler measurements suggest normal left ventricular diastolic function. The left ventricular wall motion is normal. There is no thrombus. There is no ventricular septal defect visualized. Right Ventricle The right ventricle is grossly normal size. The right ventricle is not well visualized secondary to technical limitations. Atria The right atrium is normal. The left atrial size is normal. The interatrial septum is intact with no evidence for an atrial septal defect. Mitral Valve There is no evidence of mitral valve prolapse. There is no vegetation seen on the mitral valve. There is no mitral valve stenosis. There is no mitral regurgitation noted. Aortic Valve There is no aortic valvular vegetation. There is mild aortic stenosis. There is a peak gradient of 18 mm of Hg. There is a trace amount of aortic regurgitation. Tricuspid Valve There is no tricuspid stenosis. No tricuspid regurgitation. Unable to calculate RVSP due lack of TR jet. Pulmonic Valve There is no pulmonic valvular stenosis. There is no pulmonic valvular regurgitation. Great Vessels The aortic root is normal size. Effusions There is no pericardial effusion. : AIMEE HOBBS > Sara Solano
[2018-03-27 06:13] LABS: ARTERIAL BLOOD BASE EXCESS 5.5 mmol/L; ARTERIAL BLOOD H2CO3 1.42 mmol/L (1.05-1.35); ARTERIAL BLOOD HCO3 30.8 mmol/L (20-24); ARTERIAL BLOOD O2 SATURATION 93.8 % (94-98); ARTERIAL BLOOD PCO2 47.2 mmHg (35-45); ARTERIAL BLOOD PH 7.43 (7.35-7.45); ARTERIAL BLOOD PO2 67.3 mmHg (80-100); ARTERIAL BLOOD TOTAL CO2 32.2 mmol/L (21-25)
[2018-03-27 06:14] LABS: ARTERIAL BLOOD FIO2 21%
[2018-03-27] MEDS ORDERED: FUROSEMIDE 40 MG TABLET PO SCH (08:00)
[2018-03-27] MEDS: DOCUSATE SODIUM 100 MG CAPSULE PO SCH (11:26)
[2018-03-27] MEDS: ENOXAPARIN SODIUM INJ 40 MG/0.4 ML DISP.SYRIN SUBCUT SCH (11:26)
[2018-03-27] MEDS: CYANOCOBALAMIN (VITAMIN B-12) 1,000 MCG TABLET PO SCH (11:26)
[2018-03-27] MEDS: FAMOTIDINE 20 MG TABLET PO SCH (11:26)
[2018-03-27] MEDS: LEVOFLOXACIN 500 MG TABLET PO SCH (11:32)
[2018-03-27 12:51] VITALS: BP 131/70
[2018-03-27] MEDS: METHYLPREDNISOLONE INJ 40 MG/1 ML SDV IV SCH (13:50)
[2018-03-27] MEDS ORDERED: PREDNISONE 20 MG TABLET PO ONE (14:30)
--- NOTE | 2018-03-27 15:32 | Pulmonary Function Test ---
Pulmonary Function Test Date of Procedure:: 03/26/18 INDICATION:: Dyspnea Referring Provider: Dr Valenzuela - Report Spirometry: FVC 1.35 L 42% FEV1 1.14 L 45% FEV1/FVC % 84 predicted 79 FEF 25-75% 2.37 L 88% Impression: Spirometry suggestive of restrictive ventilatory defect. Restrictive defect can not be diagnosed on the basis of spirometry alone .if clinically indicated complete pulmonary function test would be warranted.
--- NOTE | 2018-03-27 17:13 | PDOC DISCHARGE SUMMARY ---
General - Admit/Disc Date/PCP Admission Date/Primary Care Provider: 03/23/18 15:05 SANKET ORTIZ NP Discharge Date: 03/27/18 - Discharge Diagnosis (1) Acute bronchitis with bronchospasm Is this a current diagnosis for this admission?: Yes Summary: Responded well to steroids and bronchodilators. She will finish a course of prednisone at home. I gave her a prescription for an albuterol inhaler if she needs it. (2) Acute respiratory failure with hypoxia Is this a current diagnosis for this admission?: Yes Summary: Resolved. We got her off oxygen and she did fine. (3) Carboxyhemoglobinemia Is this a current diagnosis for this admission?: Yes Summary: She was using a kerosene heater for extra heat in her home, and it made the CO2 levels get too high. We had her on oxygen supplementation and her blood levels were down to near normal range at discharge. - Additional Information Resuscitation Status: Full Code Discharge Diet: Regular Discharge Activity: Activity As Tolerated Prescriptions: Albuterol Sulfate [Proventil Hfa] 6.7 gm IH Q4HP PRN #1 hfa.[email or web address] PRN Reason: For Wheezing Levofloxacin [Levaquin 500 mg Tablet] 500 mg PO DAILY #4 tablet Prednisone [Deltasone 20 mg Tablet] 40 mg PO DAILY #10 tablet Home Medications: Betamethasone Dipropionate [Betamethasone Dipropionate Ointment] 1 applic TP BIDP PRN 03/23/18 Cholecalciferol (Vitamin D3) [Vitamin D3 5000 unit Capsule] 5,000 unit PO DAILY 03/23/18 Cyanocobalamin (Vitamin B-12) [Vitamin B-12] 1,000 mcg PO DAILY 03/23/18 Furosemide [Lasix 40 mg Tablet] 40 mg PO QAM 03/23/18 Albuterol Sulfate [Proventil Hfa] 6.7 gm IH Q4HP PRN #1 hfa.aer.ad 03/27/18 Levofloxacin [Levaquin 500 mg Tablet] 500 mg PO DAILY #4 tablet 03/27/18 Prednisone [Deltasone 20 mg Tablet] 40 mg PO DAILY #10 tablet 03/27/18 History of Present Illness History of Present Illness: MELI HILL is a 62 year old female with a history of obesity with gastric bypass, hypertension, eczema, psoriasis chronic edema of the lower extremities came to the emergency room with complaints of shortness of breath for the last 3 days. Symptoms started with sore throat and cough initially followed by coughing up greenish colored sputum. She is also complaining of headaches across the forehead as in association with runny nose. She is also given the history of low-grade fever 100.1 at home. Denies any nausea vomiting diarrhea constipation. Denies any new rashes. Denies any problem with urination. She is said she is using [employer] heater for the last 4 years never had a problem with fumes. But her carboxyhemoglobin is 1.8 on admission. The fire department was called after she left the home they found CO2 levels are high in the house. On examination patient alert and awake communicating very well in mild to moderate distress. Hospital Course Hospital Course: She responded well to steroids and supplemental O2. Her carboxyhemoglobin levels were near normal discharge. Her lactic acid levels were normal as well. She was comfortable on room air with oxygen saturations greater than 90%. She will complete a course of steroids at home. Her labs and examination were reassuring and she was discharged in good condition. Physical Exam Vital Signs: Temp Pulse Resp BP Pulse Ox 97.9 F 69 17 131/70 H 90 L 03/27/18 14:20 03/27/18 14:20 03/27/18 14:20 03/27/18 14:20 03/27/18 14:20 Intake & Output 03/26/18 03/27/18 03/28/18 06:59 06:59 06:59 Intake Total 193 1400 Balance 1930 1400 Weight 127.6 kg General appearance: PRESENT: no acute distress, cooperative, disheveled, morbidly obese Respiratory exam: PRESENT: clear to auscultation shankar, symmetrical, unlabored. ABSENT: accessory muscle use, crackles, prolonged expiratory phas, rhonchi, tachypnea, wheezes Cardiovascular exam: PRESENT: RRR, +S1, +S2 Vascular exam: PRESENT: normal capillary refill GI/Abdominal exam: PRESENT: normal bowel sounds, soft. ABSENT: distended, guarding, rebound, tenderness Extremities exam: ABSENT: clubbing, pedal edema Musculoskeletal exam: PRESENT: normal inspection. ABSENT: deformity Neurological exam: PRESENT: alert, awake, oriented to person, oriented to place, oriented to time, oriented to situation Psychiatric exam: PRESENT: appropriate affect, normal mood Skin exam: PRESENT: other - She had plaques of psoriasis all over her chest, and she had evidence of psoriasis or eczema on her face with flaking of the skin as well. Results Laboratory Results: 03/25/18 04:31 03/25/18 04:31 03/27/18 03/27/18 03/27/18 05:45 06:36 06:36 Carbonic Acid 1.42 H HCO3/H2CO3 Ratio 21:1 ABG pH 7.43 ABG pCO2 47.2 H ABG pO2 67.3 L ABG HCO3 30.8 H ABG O2 Saturation 93.8 L ABG Base Excess 5.5 Carboxyhemoglobin 1.6 H FiO2 21% Lactic Acid 1.2 03/25/18 04:03 Sputum Gram Stain - Final 03/25/18 04:03 Sputum Sputum Culture - Final NORMAL ALEXANDRE 03/23/18 11:44 Troponin I < 0.012 NT-Pro-B Natriuret Pep 92 Impressions: Chest CT 03/23/18 00:00 IMPRESSION: There are mild ground-glass infiltrates in the upper lobes. This may suggest mild chronic interstitial changes or mild interstitial edema. Chest X-Ray 03/23/18 11:18 IMPRESSION: NO ACUTE RADIOGRAPHIC FINDING IN THE CHEST. Qualifiers - * PATIENT BEING DISCHARGED WITH ANY OF THE FOLLOWING DIAGNOSIS: No
== END 2018-03-27 15:00 | disposition home or self-care (01) | DRG 189 ==
LOC: ER 10:53 → OBSVTOIN 15:05 → EH 15:05 → 5 16:45
PROVIDERS: ADMIT Internal Medicine; ATTEND Internal Medicine
DX: J96.01 Acute respiratory failure with hypoxia (principal); J44.1 Chronic obstructive pulmonary disease with (acute) exacerbation; Z68.42 Body mass index [BMI] 45.0-49.9, adult; J44.0 Chronic obstructive pulmonary disease with (acute) lower respiratory infection; J20.9 Acute bronchitis, unspecified; E87.70 Fluid overload, unspecified; I10 Essential (primary) hypertension; T59.7X1A Toxic effect of carbon dioxide, accidental (unintentional), initial encounter; L30.9 Dermatitis, unspecified; L40.8 Other psoriasis; I73.9 Peripheral vascular disease, unspecified; E66.9 Obesity, unspecified; Z95.0 Presence of cardiac pacemaker; Z98.84 Bariatric surgery status; Y92.098 Other place in other non-institutional residence as the place of occurrence of the external cause
CPT/HCPCS: 36415; 36600; 71045; 71250; 80053; 80061; 80069; 82375; 82803; 83036; 83605; 83735; 83880; 84443; 84484; 85025; 87040; 87070; 87205; 87804; 93005; 93010; 93306; 94010; 94640; 94667; 94668; 99285; J1650; J1956; J2920; J3490; J7512; J7620

== ENCOUNTER 2018-11-26 17:43 | Emergency (ER) | payer MEDICARE, MEDICAID ==
[2018-11-26] MEDS ORDERED: OXYCODONE-ACETAMINOPHEN 5-325 MG TABLET PO ONE (18:41)
--- NOTE | 2018-11-26 18:46 | ER Document Report ---
ED General - General Chief Complaint: Back Pain Stated Complaint: BACK PAIN Time Seen by Provider: 11/26/18 18:36 Primary Care Provider: ELIZABETH RIGGS MD [Primary Care Provider] - Follow up as needed TRAVEL OUTSIDE OF THE [place] IN LAST 30 DAYS: No - HPI Notes: Patient is a 63-year-old female who presents emergency department for evaluation of right-sided back pain. She states she got up to wash some dishes. She had a sudden onset right-sided pain. It is improved since then. It is in the right lower back, does not radiate. She denies any bowel or bladder incontinence, no saddle anesthesia, no focal numbness or weakness. She states the pain is so bad she thought her legs would go out, but she denies any leg weakness or numbness. She states she felt nauseated when her pain was severe. She states at rest her pain is a 2 out of 10, it is worsened significantly by standing. She denies any urinary symptoms. - Related Data Allergies/Adverse Reactions: No Known Allergies Allergy (Verified 03/23/18 10:54) Past Medical History - General Information source: Patient - Social History Smoking Status: Unknown if Ever Smoked Family History: CAD, Hypertension, Malignancy Patient has suicidal ideation: No Patient has homicidal ideation: No - Past Medical History Cardiac Medical History: Reports: Hx Hypertension, Hx Peripheral Vascular Disease Pulmonary Medical History: Reports: Hx Bronchitis, Hx Pneumonia Denies: Hx Tuberculosis Renal/ Medical History: Denies: Hx Peritoneal Dialysis Malignancy Medical History: Denies: Hx Cervical Cancer - polyp removed 2011 GI Medical History: Reports: Hx Gastroesophageal Reflux Disease. Denies: Hx Crohn's Disease, Hx Ulcerative Colitis Musculoskeletal Medical History: Reports Hx Arthritis Skin Medical History: Reports Hx Cellulitis, Reports Hx Eczema, Reports Hx Psoriasis Traumatic Medical History: Denies: Hx Traumatic Brain Injury Infectious Medical History: Denies: Hx HIV, Hx MRSA Past Surgical History: Reports: Hx Cholecystectomy, Hx Gastric Bypass Surgery, Hx Orthopedic Surgery - back surgery, Other - Polyp removed from the cervix. Gastric bypass. Denies: Hx Pacemaker - Immunizations Hx Diphtheria, Pertussis, Tetanus Vaccination: No Review of Systems - Review of Systems Constitutional: No symptoms reported EENT: No symptoms reported Cardiovascular: No symptoms reported Respiratory: No symptoms reported Gastrointestinal: See HPI Genitourinary: No symptoms reported Musculoskeletal: See HPI Skin: No symptoms reported Neurological/Psychological: No symptoms reported Physical Exam - Vital signs Vitals: Temp Pulse Resp BP Pulse Ox 97.8 F 65 17 159/97 H 96 11/26/18 17:53 11/26/18 17:53 11/26/18 17:53 11/26/18 17:53 11/26/18 17:53 - Notes Notes: This is an obese 63-year-old female appears stated age in no acute distress. Vital signs reviewed, please refer to chart. Head is normocephalic, atraumatic. Pupils equal round, reactive to light. Neck is supple without meningismus. Heart is regular rate and rhythm. Lungs are clear to auscultation bilaterally. Abdomen is soft, nontender, normoactive bowel sounds throughout. Extremities without cyanosis, clubbing. Posterior calves are nontender. She does have chronic appearing edema. Peripheral pulses are equal. Skin is warm and dry with eczematous patches. Examination of the spine yields a well-healing surgical scar through the lumbosacral spine without signs of dehiscence, erythema, induration. No midline tenderness or step-off. She has paraspinal musculature tenderness on the right, particularly around the L4 and L5-S1 regions with associated spasm. Unable to perform straight leg raise secondary t o patient's body habitus. Sensation is intact, reflexes diminished but symmetrical to the lower extremities. Course - Re-evaluation Re-evalutation: 11/26/18 18:45 Patient is a 63-year-old female who presents emergency department for evaluation of right-sided back pain. It is positional, worsened by standing. She does not have any red flag symptoms. She is afebrile, and has only mildly elevated blood pressure. At this point urinalysis, x-ray, pain medication ordered. We will continue to monitor. 11/26/18 20:56 Laboratory investigations revealed some leukocyte esterase, but she has a contaminated specimen. She does not have urinary symptoms. This pain is what seems to be an acute exacerbation of her chronic musculoskeletal back pain. She was feeling improved with some Percocet here. I will send her home with muscle relaxers and close follow-up. She is return to the ED with worsening. - Vital Signs Vital signs: Temp Pulse Resp BP Pulse Ox 97.8 F 65 17 159/97 H 96 11/26/18 17:53 11/26/18 17:53 11/26/18 17:53 11/26/18 17:53 11/26/18 17:53 - Laboratory Laboratory results interpreted by me: 11/26/18 18:30 Urine Urobilinogen 4.0 H Ur Leukocyte Esterase MODERATE H Urine Ascorbic Acid 40 H - Diagnostic Test Radiology reviewed: Reports reviewed Radiology results interpreted by me: 11/26/18 20:56 Lumbar Spine X-Ray 11/26/18 18:41 IMPRESSION: Diffuse disc space loss of height. Lower lumbar facet arthropathy. Question left lower pole intrarenal nonobstructive kidney stone Discharge - Discharge Clinical Impression: Acute exacerbation of chronic low back pain Condition: Stable Disposition: HOME, SELF-CARE Instructions: Low Back Pain ([facility]) Additional Instructions: Moist heat to the painful area. Take medication as prescribed, watch for drowsiness with this. Follow-up with primary care this week. Return to the emergency department with worsening or new concerning symptoms of any sort. Referrals: ELIZABETH RIGGS MD [Primary Care Provider] - Follow up as needed
[2018-11-26 19:21] LABS: APPEARANCE,URINE SLIGHTLY-CLOUDY; BILIRUBIN,URINE NEGATIVE (NEGATIVE); COLOR,URINE YELLOW; GLUCOSE, URINE NEGATIVE (NEGATIVE); KETONES,URINE NEGATIVE (NEGATIVE); LEUKOCYTE ESTERASE,URINE MODERATE (NEGATIVE); NITRITE,URINE NEGATIVE (NEGATIVE); PROTEIN,URINE NEGATIVE (NEGATIVE); URINE SPECIFIC GRAVITY 1.025
--- NOTE | 2018-11-26 19:21 | RADIOLOGY REPORT (SQ) ---
EXAM DESCRIPTION: L SPINE WHOLE COMPLETED DATE/TIME: 11/26/2018 7:05 pm REASON FOR STUDY: pain COMPARISON: None. NUMBER OF VIEWS: Five views including obliques. TECHNIQUE: AP, lateral, oblique, and sacral radiographic images acquired of the lumbar spine. LIMITATIONS: Large patient, long exposure times, mild motion artifact FINDINGS: MINERALIZATION: Normal. SEGMENTATION: Normal. No transitional anatomy. ALIGNMENT: Normal. VERTEBRAE: Maintained height. No fracture or worrisome bone lesion. DISCS: Diffuse disc space loss of height with anterior osteophytes POSTERIOR ELEMENTS: Moderate bilateral L4-5 and L5-S1 facet arthropathy HARDWARE: None in the spine. PARASPINAL SOFT TISSUES: Question 6 mm left lower pole intrarenal nonobstructive stone. Clips right upper quadrant post cholecystectomy PELVIS: Sclerosis bilateral SI joints OTHER: No other significant finding. IMPRESSION: Diffuse disc space loss of height. Lower lumbar facet arthropathy. Question left lower pole intrarenal nonobstructive kidney stone TECHNICAL DOCUMENTATION: JOB ID: [id number] [employer]- All Rights Reserved Reading location - IP/workstation name: [email or web address]
[2018-11-26 21:43] VITALS: BP 137/94
== END 2018-11-26 21:35 | disposition home or self-care (01) ==
LOC: ER 17:43
DX: M54.5 Low back pain (principal); G89.29 Other chronic pain; M54.9 Dorsalgia, unspecified; R11.0 Nausea; I10 Essential (primary) hypertension
CPT/HCPCS: 99283; 81001; 72110; A9270

== ENCOUNTER 2020-02-25 03:30 | Emergency (ER) | payer MEDICARE, MEDICAID ==
[2020-02-25] MEDS ORDERED: IPRATROPIUM/ALBUTEROL 0.5-2.5 MG/3 ML AMPUL NEB ONE (05:05)
[2020-02-25] MEDS ORDERED: BENZONATATE 100 MG CAPSULE PO ONE (05:05)
[2020-02-25] MEDS ORDERED: AMOXICILLIN TR/POT CLAVULANATE 875-125 MG TAB PO ONE (05:06)
--- NOTE | 2020-02-25 06:06 | RADIOLOGY REPORT (SQ) ---
AP Portable chest: 02/25/2020 5:04 AM [facility] [employer] History: 64-year old patient with productive cough. Comparison: Chest radiograph performed 03/23/2018. Findings: The cardiomediastinal silhouette is at the upper limits of normal in size. No pneumothorax is seen. No acute airspace opacities are seen. No discrete pleural effusion is apparent. There is elevation of the right hemidiaphragm. Atherosclerotic calcifications are seen at the aortic arch. The patient's chin overlies the apices. Impression: No acute airspace opacities are seen.
--- NOTE | 2020-02-25 06:17 | ER Document Report ---
ED Respiratory Problem - General Chief Complaint: Cough Stated Complaint: COUGH Time Seen by Provider: 02/25/20 04:45 Primary Care Provider: ELIZABETH RIGGS MD [Primary Care Provider] - Follow up in 1 week Notes: Patient is a 64-year-old female presents emergency department with a chief complaint of a cough. Patient states that she has had her cough for the past about 6-7 days. Patient states that she was placed on amoxicillin for otitis media of the left ear. Patient states despite being on her antibiotics, she still continues to have left ear pain. Patient has not been tested for Covid, but would like to be tested. TRAVEL OUTSIDE OF THE [place] IN LAST 30 DAYS: No - Related Data Allergies/Adverse Reactions: No Known Allergies Allergy (Verified 03/23/18 10:54) Home Medications: LASIX, ALDACTONE, VITAMIN AND SUPPLEMENTS Past Medical History - Social History Smoking Status: Never Smoker Family History: CAD, Hypertension, Malignancy - Past Medical History Cardiac Medical History: Reports: Hx Hypertension, Hx Peripheral Vascular Disease Pulmonary Medical History: Reports: Hx Bronchitis, Hx Pneumonia Denies: Hx Tuberculosis Renal/ Medical History: Denies: Hx Peritoneal Dialysis Malignancy Medical History: Denies: Hx Cervical Cancer - polyp removed 2011 GI Medical History: Reports: Hx Gastroesophageal Reflux Disease. Denies: Hx Crohn's Disease, Hx Ulcerative Colitis Musculoskeletal Medical History: Reports Hx Arthritis Skin Medical History: Reports Hx Cellulitis, Reports Hx Eczema, Reports Hx Psoriasis Traumatic Medical History: Denies: Hx Traumatic Brain Injury Infectious Medical History: Denies: Hx HIV, Hx MRSA Past Surgical History: Reports: Hx Cholecystectomy, Hx Gastric Bypass Surgery, Hx Orthopedic Surgery - back surgery, Other - Polyp removed from the cervix. Gastric bypass. Denies: Hx Pacemaker - Immunizations Hx Diphtheria, Pertussis, Tetanus Vaccination: No Review of Systems - Review of Systems Notes: REVIEW OF SYSTEMS: CONSTITUTIONAL : Denies recent illness. Denies recent unintentional weight loss. Denies fever, chills, or sweats. EENT: See HPI. CARDIOVASCULAR: Denies chest pain. RESPIRATORY: See HPI. GASTROINTESTINAL: Denies nausea, vomiting, and diarrhea. Denies abdominal pain. Denies constipation. GENITOURINARY: Denies difficulty urinating, burning, blood in urine, urgency or frequency. MUSCULOSKELETAL: Denies neck and back pain. Denies joint pain or swelling. SKIN: Denies rash, itchiness, or lesions HEMATOLOGIC : Denies easy bruising or bleeding. LYMPHATIC: Denies swollen, painful, enlarged glands. NEUROLOGICAL: Denies no numbness or tingling denies weakness. Denies headache. Denies altered mental status. Denies alteration in speech. PSYCHIATRIC: Denies stress, anxiety, alteration in sleep patterns, or depression. All other systems reviewed and negative. Physical Exam - Vital signs Vitals: Temp Pulse Resp BP Pulse Ox 97.9 F 84 20 153/93 H 94 02/25/20 03:53 02/25/20 03:53 02/25/20 03:53 02/25/20 03:53 02/25/20 03:53 - Notes Notes: PHYSICAL EXAMINATION: GENERAL: Appears well, healthy, well-nourished, no acute distress. HEAD: Normocephalic, atraumatic. EYES: PERRL, conjunctiva normal, all extraocular movements intact, sclera nonicteric ENT: Moist mucous membranes. Edema and erythema noted to Left external auditory canal. NECK: Supple, no noticeable swelling, redness, rash. Normal range of motion. LUNGS: Expiratory wheezes noted in all lung van CARDIOVASCULAR: S1-S2, regular rate, regular rhythm. Radial pulses 2+, normal. ABDOMEN: Normoactive bowel sounds. Soft, nontender, no guarding, no rebound tenderness, and no masses palpated. EXTREMITIES: Normal strength and range of motion, no pitting or edema. No cyanosis. NEUROLOGICAL: Moves all extremities upon command. Strength 5/5 in all extremities. PSYCH: Normal mood, normal affect. SKIN: Warm, dry. No rash, lesions, ulcerations noted. Normal skin turgor. Course - Re-evaluation Re-evalutation: 02/25/20 06:13 Chest x-ray is unremarkable. Patient states that she does feel better after receiving a breathing treatment and Tessalon Perles. We will send patient home with prednisone, Augmentin for otitis media. Patient's physical exam and history is consistent with otitis externa. Patient will be placed on Ciprodex drops. I do not suspect patient has mastoiditis, as there is no pain at the mastoid process. The patient was evaluated during the global COVID-19 pandemic and that diagnosis was suspected/considered upon their initial presentation. Their evaluation, treatment and testing was consistent with current guidelines for patients who present with complaints or symptoms that may be related to COVID-19. Follow-up precautions were given. Verbal discharge instructions were given to the patient. They verbalized understanding. They are stable for disc harge. - Vital Signs Vital signs: Temp Pulse Resp BP Pulse Ox 97.3 F 84 16 148/68 H 98 02/25/20 07:24 02/25/20 07:24 02/25/20 07:24 02/25/20 07:24 02/25/20 07:24 - Laboratory Results Critical Laboratory Results Reviewed: No Critical Results - Radiology Results Critical Radiology Results Reviewed: No Critical Results Discharge - Discharge Clinical Impression: Person under investigation for COVID-19, Cough Otitis media Qualifiers: Otitis media type: suppurative Chronicity: acute Laterality: left Recurrence: recurrent Spontaneous tympanic membrane rupture: without spontaneous rupture Qualified Code(s): H66.005 - Acute suppurative otitis media without spontaneous rupture of ear drum, recurrent, left ear Otitis externa Qualifiers: Otitis externa type: noninfectious Noninfectious otitis externa type: eczematoid Chronicity: acute Laterality: left Qualified Code(s): H60.542 - Acute eczematoid otitis externa, left ear Condition: Stable Disposition: HOME, SELF-CARE Instructions: COVID-19 Guidance for Persons Under Investigation, Use of Ear Drops ([facility]), Otitis Externa ([facility]) Additional Instructions: Take the antibiotics as prescribed for your ear infection. Use the eardrops. Take the steroids as prescribed. Use the inhaler to help with any shortness of breath. As a person under investigation for COVID-19, the [place] Department of Health and Human Services (division on public health) advises you to adhere to the following guidance until your test results are reported to you. If your test result is positive, you will receive additional information from your provider and your local health department at that time. Remain at home until you are cleared by the health provider or public health authorities. Keep a log of visitors to your home, notify any visitors to your home of your isolation status. If you plan to move to a new address or leave the formerly [facility], notify the local health department in your County. Call your Doctor or seek care if you have an urgent medical need. Before seeking medical care, call him to get instructions from the provider before arriving at the medical office, clinic, or hospital. Notify them that you are being tested for the virus (COVID-19) so that arrangements can be made, as necessary, to prevent transmission to others in the healthcare setting. Next, notify the local health department in your county. Prescriptions: Amoxicillin/Potassium Clav [Augmentin 875-125 Tablet] 1 tab PO BID #20 tab Ciprofloxacin HCl/Dexameth [Ciprodex Otic Suspension 7.5 ml Bottle] 4 drop OT BID 7 Days #1 bottle Prednisone [Deltasone 20 mg Tablet] 3 tab PO DAILY 5 Days #15 tablet Albuterol Sulfate [Proair HFA Inhalation Aerosol 8.5 gm MDI] 2 puff IH Q4H PRN #1 mdi PRN Reason: Inhaler, Assist Devices [Space Chamber] 1 each MC ASDIR PRN #1 spacer PRN Reason: Benzonatate [Tessalon Perles 100 mg Capsule] 100 mg PO Q8HP PRN #40 capsule PRN Reason: Referrals: ELIZABETH RIGGS MD [Primary Care Provider] - Follow up in 1 week
[2020-02-25 07:26] VITALS: BP 148/68
== END 2020-02-25 07:24 | disposition home or self-care (01) ==
LOC: ER 03:30
DX: H66.005 Acute suppurative otitis media without spontaneous rupture of ear drum, recurrent, left ear (principal); H60.542 Acute eczematoid otitis externa, left ear; I10 Essential (primary) hypertension; K21.9 Gastro-esophageal reflux disease without esophagitis; Z20.828 Contact with and (suspected) exposure to other viral communicable diseases
CPT/HCPCS: 94640; 99284; 71045; U0003; A9270; J3490; C9803; 87635